=== PATIENT | male | born 1975 | race Caucasian/White ===

== ENCOUNTER 2017-10-20 14:09 | Emergency (ER) | payer SELFPAY ==
[~2017-10-20] VITALS: Ht 180.3 cm; Wt 95.0 kg
[2017-10-20 14:11] VITALS: BP 127/77; PULSE 85; RESP 18; TEMP 98.1; O2SAT 100
--- NOTE | 2017-10-20 14:58 | RADRPT ---
EXAM DATE/TIME: 10/20/2017 14:43 [place] COMPARISON: No previous studies available for comparison. INDICATIONS : Left foot pain; kicked chair 3 days ago. MEDICAL HISTORY : None. SURGICAL HISTORY : None. ENCOUNTER: Initial ACUITY: 3 days PAIN SCORE: 10/10 LOCATION: Left foot. FINDINGS: There is a moderately displaced chip fracture involving the second toe proximal phalanx at the metata rsophalangeal joint. The donor site appears to be the medial epiphysis. A small fracture is displaced medially toward the first MTP joint. Elsewhere, there is mild arthritic change at the first MTP join t. No other fractures and no evidence of dislocations. The hindfoot is grossly intact. CONCLUSION: Epiphyseal chip fracture involving the second toe at the metatarsophalangeal joint. Khalif Lo MD on October 20, 2017 at 14:54 Board Certified Radiologist. This report was verified electronically.
[2017-10-20] MEDS ORDERED: IBUP-232 PO (15:06)
--- NOTE | 2017-10-20 15:10 | PD ---
HPI Chief Complaint: Injury Time Seen by Provider: 14:38 Travel History International Travel<30 days: No Contact w/Intl Traveler<30days: No Traveled to known affect area: No History of Present Illness HPI 42-year-old male presents for evaluation of left foot pain. He reports that 2 days ago he kicked a chair. He has had pain in his left foot since then. The pain is a throbbing pain which is worse with taking and walking. He has not tried using any medication for symptom relief. He has no other complaints at this time. [facility] Social History Alcohol Use: No Tobacco Use: Yes Allergies-Medications (Allergen,Severity, Reaction): Coded Allergies: Penicillins (Verified Allergy, Unknown, 10/20/17) Reported Meds & Prescriptions Reported Meds & Active Scripts Active Ibuprofen 600 Mg Tab 600 Mg PO Q6H PRN Review of Systems Musculoskeletal: Positive: Pain Skin: Positive Other (positive for bruising) Physical Exam Narrative GENERAL: Well-nourished male in no acute distress SKIN: Warm and dry. Some ecchymosis is noted to the distal left foot. No open wounds. CARDIOVASCULAR: Regular rate and rhythm. No murmur appreciated. RESPIRATORY: No accessory muscle use. Clear to auscultation. Breath sounds equal bilaterally. MUSCULOSKELETAL: Bruising as noted above with associated tenderness to palpation of the left forefoot and left second toe. Capillary refill less than 2 seconds. 2 posterior cells pedis pulse. Sensation preserved. NEUROLOGICAL: Awake and alert. No obvious cranial nerve deficits. Motor grossly within normal limits. Normal speech. Data Data Last Documented VS Vital Signs Date Time Temp Pulse Resp B/P (MAP) Pulse Ox O2 Delivery O2 Flow Rate FiO2 10/20/17 14:11 98.1 85 18 127/77 (94) 100 Room Air Orders Orders Foot, Complete ([id number]) (10/20/17 ) Ed Discharge Order (10/20/17 15:05) Ibuprofen (Motrin) (10/20/17 15:15) Splint Or Brace Apply/Monitor (10/20/17 15:05) [facility] Medical Decision Making Medical Screen Exam Complete: Yes Emergency Medical Condition: Yes Medical Record Reviewed: Yes Differential Diagnosis Toe fracture, contusion, sprain Narrative Course CONCLUSION: Epiphyseal chip fracture involving the second toe at the metatarsophalangeal joint. The patient will be placed in a kira tape splint and postop shoe. Stable for discharge. Diagnosis Primary Impression: Toe fracture Additional Instructions: Medication as needed. Rest. Ice pack several times a day 20 minutes at a time. Follow-up with primary care physician or podiatry in 1-2 weeks. Return for any emergent medical conditions. Med/Other Pt SpecificInfo: Prescription(s) given, Orthopedic Instructions Scripts Ibuprofen (Ibuprofen) 600 Mg Tab 600 MG PO Q6H Y for Pain/Inflammation, #40 TAB 0 Refills Prov: Keith Meraz MD 10/20/17 Disposition: 01 DISCHARGE HOME Condition: Stable Freddy Joy Oct 20, 2017 15:09
[2017-10-20] MEDS ORDERED: IBUPROFEN 800 MG TAB PO ONE (15:15)
== END 2017-10-20 15:41 | disposition home or self-care (01) ==
LOC: NEPK 14:09
DX: S92.322A Displaced fracture of second metatarsal bone, left foot, initial encounter for closed fracture (principal); W22.8XXA Striking against or struck by other objects, initial encounter
CPT/HCPCS: 73630; 99283; L3260